=== PATIENT | female | born 1950 | race Caucasian/White ===

== ENCOUNTER 2021-05-11 13:47 | Emergency (ER) | payer MEDICARE ==
[~2021-05-11] VITALS: Wt 74.8 kg
[~2021-05-11 13:47] MED LIST: ADVIL LIQUI-GE200 M1 PO; ATIVAN0.5 MG PO; B COMPLEX1 EACH PO; BACLOFEN20 M1 PO; BIOTIN5000 MC1 PO; CALCIUM 600 MG1 EAC4 PO; DIAZEPAM5 MG PO; DOXEPIN PO; HYDROCHLOROTHIA25 MG PO; HYDROCHLOROTHIA50 M1 PO; HYDROCODONE BIT1 T11 PO; LAMICTAL200 MG PO; LOVASTATIN20 MG PO; MAGNESIUM250 M1 PO; MOTRIN600 MG PO; PAIN RELIEVER500 MG PO; PANTOPRAZOLE SO40 MG PO; POTASSIUM99 M3 PO; PREVACID30 M1 PO; PRINIVIL20 M1 PO; TRAMADOL HCL50 MG PO; VITAMIN C500 M6 PO; VITAMIN D325 MCG PO; ZANTAC150 MG PO
[2021-05-11 13:48] VITALS: BP 162/83
== END 2021-05-11 21:37 | disposition home or self-care (01) ==
LOC: ED 13:47
DX: S66.912A Strain of unspecified muscle, fascia and tendon at wrist and hand level, left hand, initial encounter (principal); S00.83XA Contusion of other part of head, initial encounter; S80.02XA Contusion of left knee, initial encounter; S80.211A Abrasion, right knee, initial encounter; Z88.6 Allergy status to analgesic agent; Z91.010 Allergy to peanuts; Z79.899 Other long term (current) drug therapy; W18.39XA Other fall on same level, initial encounter; Y93.89 Activity, other specified; Y92.89 Other specified places as the place of occurrence of the external cause; Y99.8 Other external cause status

== ENCOUNTER 2022-05-12 15:08 | Emergency (ER) | payer MEDICARE ==
[2022-05-12 15:23] VITALS: BP 169/75
[2022-05-12 17:06] LABS: BASO % 0.3 % (0.0-1.0); EOS % 0.3 % (1.0-4.0); HEMATOCRIT 43.3 % (37.0-47.0); LYMPH # 1.3 10*3/uL (1.3-4.4); LYMPH % 14.9 % (27.0-41.0); MEAN CELL VOLUME 87.3 fl (81.0-99.0); MEAN CORPUSCULAR HGB 29.4 pg (27.0-31.0); MEAN CORPUSCULAR HGB CONC 33.7 g/dl (33.0-37.0); MEAN PLATELET VOLUME 9.1 fl (9.6-12.3); MONO # 0.3 10*3/uL (0.1-1.0); MONO % 3.3 % (3.0-9.0); NEUT % 80.7 % (47.0-73.0); PLATELET COUNT AUTOMATED 266 10*3/uL (130-400); RED BLOOD COUNT 4.96 10*6/uL (4.10-5.10); RED CELL DISTRI WIDTH 12.4 % (0-14.5); WHITE BLOOD COUNT 8.7 10*3/uL (4.8-10.8)
[2022-05-12 17:25] LABS: ALKALINE PHOSPHATASE 111 U/L (46-116); BUN 7 mg/dl (9-23); CHLORIDE 97 mmol/L (98-107); SGPT/ALT 24 U/L (10-49)
[2022-05-12] MEDS ORDERED: CYCLOBENZAPRINE10 MG PO (18:34)
[2022-05-12] MEDS ORDERED: ONDANSETRON4 MG SL (18:40)
== END 2022-05-12 18:46 | disposition home or self-care (01) ==
LOC: ED 15:08
PROVIDERS: Nurse Practitioner Family
DX: M62.830 Muscle spasm of back (principal); Z91.010 Allergy to peanuts; Z88.5 Allergy status to narcotic agent; Z88.8 Allergy status to other drugs, medicaments and biological substances; Z98.890 Other specified postprocedural states

== ENCOUNTER 2024-03-18 01:28 | Emergency (ER) | payer MEDICARE ==
[~2024-03-18] VITALS: Ht 165.1 cm; Wt 65.8 kg
[~2024-03-18 01:28] MED LIST changes: +CYCLOBENZAPRINE10 MG PO; +ONDANSETRON4 MG SL
[2024-03-18 01:35] VITALS: BP 160/77
[2024-03-18 01:50] LABS: BASO % 0.5 % (0.0-1.0); EOS # 0.1 10*3/uL (0.0-0.4); EOS % 1.8 % (1.0-4.0); HEMATOCRIT 43.6 % (37.0-47.0); MEAN CELL VOLUME 90.3 fl (81.0-99.0); MEAN CORPUSCULAR HGB 29.2 pg (27.0-31.0); MEAN CORPUSCULAR HGB CONC 32.3 g/dl (33.0-37.0); MEAN PLATELET VOLUME 9.1 fl (9.6-12.3); MONO # 0.5 10*3/uL (0.1-1.0); MONO % 6.8 % (3.0-9.0); NEUT # 5.4 10*3/uL (2.3-7.9); NEUT % 67.7 % (47.0-73.0); PLATELET COUNT AUTOMATED 266 10*3/uL (130-400); RED BLOOD COUNT 4.83 10*6/uL (4.10-5.10); RED CELL DISTRI WIDTH 12.8 % (0-14.5); WHITE BLOOD COUNT 7.9 10*3/uL (4.8-10.8)
[2024-03-18 02:28] LABS: BUN 13 mg/dl (9-23); CHLORIDE 103 mmol/L (98-107); POTASSIUM 4.5 mmol/L (3.4-5.1)
== END 2024-03-18 04:31 | disposition home or self-care (01) ==
LOC: ED 01:28
PROVIDERS: Internal Medicine
DX: I10 Essential (primary) hypertension (principal); Z88.8 Allergy status to other drugs, medicaments and biological substances; Z91.010 Allergy to peanuts; Z88.5 Allergy status to narcotic agent; Z79.899 Other long term (current) drug therapy; Z98.890 Other specified postprocedural states